=== PATIENT | female | born 1990 | race Caucasian/White ===

== ENCOUNTER 2019-12-23 10:56 | Emergency (ER) | payer MEDICAID, OTHER ==
[~2019-12-23] VITALS: Ht 162.6 cm; Wt 61.4 kg
[2019-12-23 11:18] VITALS: BP 109/86
--- NOTE | 2019-12-25 09:10 | NUR ---
LAB CALLED WITH A POSITIVE COVID-19 RESULT
--- NOTE | 2019-12-25 09:41 | NUR ---
Patient called with COVID + result. She continues to have loss of taste, but it is coming back. She can now taste citris flavors as of yesterday and this morning she was able to smell her body wash. Patient informed that public health would contact her.
== END 2019-12-23 11:38 | disposition home or self-care (01) ==
LOC: ER 10:56
DX: R43.8 Other disturbances of smell and taste (principal); Z20.828 Contact with and (suspected) exposure to other viral communicable diseases
CPT/HCPCS: 36415; 99283; U0003